=== PATIENT | female | born 1975 | race Caucasian/White ===

== ENCOUNTER 2020-08-15 17:04 | Inpatient (IN) | payer OTHER ==
[~2020-08-15] VITALS: Ht 157.5 cm; Wt 75.3 kg
[2020-08-19] MEDS ORDERED: NAPROXEN SODIU550 MG (11:52)
== END 2020-08-23 10:51 | disposition home or self-care (01) | DRG 982 ==
LOC: ER 17:04 → OB/GYN 21:01
PROVIDERS: Obstetrics & Gynecology; ADMIT Obstetrics & Gynecology Gynecologic Oncology; ATTEND Obstetrics & Gynecology Gynecologic Oncology
PROC: 0W9G3ZZ Drainage of Peritoneal Cavity, Percutaneous Approach (ICD-10-PCS; 2020-08-16)
PROC: 0UT20ZZ Resection of Bilateral Ovaries, Open Approach (ICD-10-PCS; 2020-08-18)
PROC: 0UT70ZZ Resection of Bilateral Fallopian Tubes, Open Approach (ICD-10-PCS; 2020-08-18)
PROC: 07BC0ZZ Excision of Pelvis Lymphatic, Open Approach (ICD-10-PCS; 2020-08-18)
PROC: 30233N1 Transfusion of Nonautologous Red Blood Cells into Peripheral Vein, Percutaneous Approach (ICD-10-PCS; 2020-08-18)
PROC: 0UT90ZZ Resection of Uterus, Open Approach (ICD-10-PCS; principal; 2020-08-18 14:00)
DX: C49.5 Malignant neoplasm of connective and soft tissue of pelvis (principal); R18.0 Malignant ascites; D64.9 Anemia, unspecified; N73.6 Female pelvic peritoneal adhesions (postinfective); D72.829 Elevated white blood cell count, unspecified; N72 Inflammatory disease of cervix uteri; D25.1 Intramural leiomyoma of uterus; K66.8 Other specified disorders of peritoneum; N83.291 Other ovarian cyst, right side; N83.292 Other ovarian cyst, left side; Z20.822 Contact with and (suspected) exposure to COVID-19

== ENCOUNTER 2020-10-27 05:20 | Day surgery (SDC) | payer OTHER ==
[~2020-10-27 05:20] MED LIST: D3 + K2 DOTS 11 EACH PO; NAPROXEN SODIU550 MG; SINGULAIR10 MG; SYMBICORT 16010.2 GM IH; VENTOLIN HFA18 GM IH; VITAMIN C500 M6 PO
== END 2020-10-27 14:30 | disposition home or self-care (01) ==
LOC: CIR.AMB 05:20
PROVIDERS: ATTEND Specialist
DX: C49.5 Malignant neoplasm of connective and soft tissue of pelvis (principal); Z20.822 Contact with and (suspected) exposure to COVID-19
CPT/HCPCS: 36561; C1751

== ENCOUNTER 2021-07-24 15:49 | Inpatient (IN) | payer OTHER ==
[~2021-07-24] VITALS: Ht 160 cm; Wt 67.1 kg
--- NOTE | 2021-07-24 16:27 | NUR ---
SE RECIBE PTE ALERTA Y ORIENTADA X3 QUIEN REFIERE FUE OPERADA EL [address] EPHRAIM ZULUAGA DE ICTERECTOMIA TOTAL Y [place] SEGUIDO ATENDIENDOSE CON DR DAVID PRICE WILLIS JUSTINA REFIERE HACEN CRESPO ATRAS SE [place] SENTIDO CON DOLOR ABDOMINAL Y EN ESTOS ULTIMOS CRESPO [place] ESTADO DISTENDIDA Y SIENTE ZENA SI FUERA PRESION EN EL ABDOMEN. JUSTINA SE COMUNICO CON [place] DOCTORES Y LA REFIRIERON PARA ER. SE MONITOREAN S/V Y SE UBICA.
--- NOTE | 2021-07-24 17:41 | NUR ---
LAFLEUR EDUCA A PTE SOBRE [place] MEDICO ESTA REFIERE ENTENDER. SE GISELA MUESTRAS DE LABORATORIO UTILIZANDO MEDIDAS ASEPTICAS. SE COLOCA H/L EL CUAL S EENCUENTRA PATENTE. SE ADMINISTRAN EMDCIAMENTOS A PTE Y SE NOTIFICA ESTUDIO DE CT IV PENDIENTE A REALIZAR.
[2021-09-03] MEDS ORDERED: ALBUTEROL2.5 MG/3 M IH (13:32)
[2021-09-03] MEDS ORDERED: DULOXETINE HCL60 MG PO (13:32)
[2021-09-03] MEDS ORDERED: GABAPENTIN100 MG PO (13:33)
[2021-09-03] MEDS ORDERED: LIDODERM1 EACH TOP (13:34)
[2021-09-03] MEDS ORDERED: INTESTINEX680 M1 PO (13:34)
[2021-09-03] MEDS ORDERED: FAMOTIDINE20 MG PO (13:34)
[2021-09-03] MEDS ORDERED: FENTANYL1 EAC7 TD (13:37)
[2021-09-03] MEDS ORDERED: ZOFRAN8 MG PO (13:39)
== END 2021-09-03 15:02 | disposition home or self-care (01) | DRG 982 ==
LOC: EMR PED 15:49 → ER 15:52 → MEDJ 19:24 → SEC-K 19:24 → MEDJ 22:06 → O/R 08-24 09:46 → MEDJ 08-24 09:52
PROVIDERS: Specialist; ADMIT Internal Medicine Hematology & Oncology; ATTEND Internal Medicine Hematology & Oncology
PROC: 0W9G3ZX Drainage of Peritoneal Cavity, Percutaneous Approach, Diagnostic (ICD-10-PCS; 2021-07-25)
PROC: 0DBV3ZX Excision of Mesentery, Percutaneous Approach, Diagnostic (ICD-10-PCS; 2021-07-25)
PROC: 3E04305 Introduction of Other Antineoplastic into Central Vein, Percutaneous Approach (ICD-10-PCS; 2021-07-28)
PROC: 30233N1 Transfusion of Nonautologous Red Blood Cells into Peripheral Vein, Percutaneous Approach (ICD-10-PCS; 2021-07-31)
PROC: 0W9G3ZZ Drainage of Peritoneal Cavity, Percutaneous Approach (ICD-10-PCS; 2021-08-01)
PROC: 0W9G30Z Drainage of Peritoneal Cavity with Drainage Device, Percutaneous Approach (ICD-10-PCS; 2021-08-18)
PROC: 02HV33Z Insertion of Infusion Device into Superior Vena Cava, Percutaneous Approach (ICD-10-PCS; 2021-08-23)
PROC: 0JPT0WZ Removal of Totally Implantable Vascular Access Device from Trunk Subcutaneous Tissue and Fascia, Open Approach (ICD-10-PCS; 2021-08-24)
PROC: 30243N1 Transfusion of Nonautologous Red Blood Cells into Central Vein, Percutaneous Approach (ICD-10-PCS; 2021-08-24)
PROC: 05PY03Z Removal of Infusion Device from Upper Vein, Open Approach (ICD-10-PCS; principal; 2021-08-24 08:30)
DX: C49.5 Malignant neoplasm of connective and soft tissue of pelvis (principal); R18.0 Malignant ascites; T80.212A Local infection due to central venous catheter, initial encounter; R65.10 Systemic inflammatory response syndrome (SIRS) of non-infectious origin without acute organ dysfunction; R78.81 Bacteremia; B96.5 Pseudomonas (aeruginosa) (mallei) (pseudomallei) as the cause of diseases classified elsewhere; C55 Malignant neoplasm of uterus, part unspecified; D63.0 Anemia in neoplastic disease; G89.3 Neoplasm related pain (acute) (chronic); E87.6 Hypokalemia; F43.23 Adjustment disorder with mixed anxiety and depressed mood; D70.1 Agranulocytosis secondary to cancer chemotherapy; T45.1X5A Adverse effect of antineoplastic and immunosuppressive drugs, initial encounter; D69.59 Other secondary thrombocytopenia; D64.81 Anemia due to antineoplastic chemotherapy; Y92.230 Patient room in hospital as the place of occurrence of the external cause; R53.81 Other malaise; Z95.828 Presence of other vascular implants and grafts